=== PATIENT | male | born 1975 | race Caucasian/White ===

== ENCOUNTER 2018-10-18 13:52 | Emergency (ER) | payer SELFPAY ==
[~2018-10-18] VITALS: Ht 185.4 cm; Wt 77.1 kg
[2018-10-18 14:04] VITALS: BP 122/72
[2018-10-18 14:26] LABS: INFLUENZA A PATIENT NEGATIVE (NEGATIVE); INFLUENZA B PATIENT NEGATIVE (NEGATIVE)
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
[2018-10-18] MEDS ORDERED: BENZ100C PO (14:37)
== END 2018-10-18 15:12 | disposition home or self-care (01) ==
LOC: ER 13:52
DX: J06.9 Acute upper respiratory infection, unspecified (principal); R19.7 Diarrhea, unspecified
CPT/HCPCS: 87804; 99283